=== PATIENT | female | born 1930 | race Caucasian/White ===

== ENCOUNTER → 2017-05-30 | Outpatient (CLI) | payer MEDICARE, BC | LOC: LAB 14:59 | DX: I10 Essential (primary) hypertension (principal); E55.9 Vitamin D deficiency, unspecified; M81.0 Age-related osteoporosis without current pathological fracture ==

== ENCOUNTER → 2018-09-21 | Outpatient (CLI) | payer MEDICARE, BC ==
[2018-09-21 08:57] LABS: EOS # 0.1 (0.04-0.40); EOS % 1.4 % (1.0-5.0); HEMATOCRIT 38.9 % (37.0-47.0); HEMOGLOBIN 12.5 g/dL (12.5-16.0); MEAN CELL VOLUME 99 fl (78-100); MEAN CORPUSCULAR HEMOGLOBIN 32 pg (27-31); MEAN CORPUSCULAR HGB CONC 32 g/dL (33-37); MEAN PLATELET VOLUME 10.3 fl (7.4-10.4); MONO # 0.3 (0.20-0.80); NEU # 2.1 (1.40-6.50); PLATELET COUNT 236 K/mm3 (130-400); RED BLOOD COUNT 3.95 M/mm3 (4.10-5.30); RED CELL DISTRIBUTION WIDTH 12.8 % (11.5-14.5); WHITE BLOOD COUNT 3.5 K/mm3 (4.8-10.8)
[2018-09-21 09:05] LABS: ALBUMIN 4.1 g/dL (3.5-5.0); CALCIUM 9.2 mg/dL (8.4-10.2); POTASSIUM 3.9 mmol/L (3.6-5.0); TOTAL BILIRUBIN 0.7 mg/dL (0.2-1.3); TOTAL PROTEIN 7.3 g/dL (6.3-8.2)
== END ==
LOC: LAB 08:35
PROVIDERS: Physician Assistant
DX: Z00.00 Encounter for general adult medical examination without abnormal findings (principal); K59.09 Other constipation; I10 Essential (primary) hypertension; M81.0 Age-related osteoporosis without current pathological fracture

== ENCOUNTER → 2019-11-29 | Outpatient (CLI) | payer MEDICARE, BC ==
[2019-11-29 08:52] LABS: ALBUMIN 4.1 g/dL (3.4-4.8); POTASSIUM 3.7 mmol/L (3.5-5.1)
[2019-11-29 08:54] LABS: CALCIUM 9.5 mg/dL (8.3-10.5)
[2019-11-29 08:55] LABS: TOTAL PROTEIN 7.2 g/dL (6.2-8.1)
[2019-11-29 08:57] LABS: TOTAL BILIRUBIN 0.6 mg/dL (0.2-1.2)
[2019-11-29 09:10] LABS: EOS # 0.1 (0.04-0.40); EOS % 1.4 % (1.0-5.0); HEMOGLOBIN 12.4 g/dL (12.5-16.0); LYMPH# 1.3 (1.50-4.00); MEAN CELL VOLUME 100 fl (78-100); MEAN CORPUSCULAR HEMOGLOBIN 31 pg (27-31); MEAN CORPUSCULAR HGB CONC 31 g/dL (33-37); MEAN PLATELET VOLUME 10.7 fl (7.4-10.4); MONO # 0.3 (0.20-0.80); NEU # 2.5 (1.40-6.50); PLATELET COUNT 219 K/mm3 (130-400); RED BLOOD COUNT 4.01 M/mm3 (4.10-5.30); RED CELL DISTRIBUTION WIDTH 13.1 % (11.5-14.5); WHITE BLOOD COUNT 4.2 K/mm3 (4.8-10.8)
== END ==
LOC: LAB 08:31
PROVIDERS: Physician Assistant
DX: Z00.00 Encounter for general adult medical examination without abnormal findings (principal); Z13.220 Encounter for screening for lipoid disorders; I10 Essential (primary) hypertension; M81.0 Age-related osteoporosis without current pathological fracture; K59.09 Other constipation

== ENCOUNTER → 2021-03-07 | Outpatient (CLI) | payer MEDICARE, BC ==
[2021-03-07 07:39] LABS: HEMATOCRIT 39.2 % (37.0-47.0); MEAN PLATELET VOLUME 9.9 fl (7.4-10.4); RED BLOOD COUNT 3.85 M/mm3 (4.10-5.30); RED CELL DISTRIBUTION WIDTH 13.1 % (11.5-14.5); WHITE BLOOD COUNT 3.8 K/mm3 (4.8-10.8)
[2021-03-07 07:45] LABS: ALBUMIN 3.9 g/dL (3.4-4.8); POTASSIUM 3.7 mmol/L (3.5-5.1)
[2021-03-07 07:46] LABS: CALCIUM 9.1 mg/dL (8.3-10.5)
[2021-03-07 07:49] LABS: TOTAL BILIRUBIN 0.6 mg/dL (0.2-1.2)
== END ==
LOC: LAB 07:00
PROVIDERS: Physician Assistant
DX: I10 Essential (primary) hypertension (principal)

== ENCOUNTER → 2022-03-18 | Outpatient (CLI) | payer MEDICARE, BC ==
[2022-03-18 08:53] LABS: BASO # 0.02 K/mm3 (0.02-0.10); EOS # 0.03 K/mm3 (0.04-0.40); EOS % 0.7 % (1.0-5.0); HEMATOCRIT 41.1 % (37.0-47.0); HEMOGLOBIN 12.8 g/dL (12.5-16.0); LYMPH# 1.14 K/mm3 (1.50-4.00); MEAN CELL VOLUME 102 fl (78-100); MEAN CORPUSCULAR HEMOGLOBIN 32 pg (27-31); MEAN CORPUSCULAR HGB CONC 31 g/dL (33-37); MEAN PLATELET VOLUME 10.2 fl (7.4-10.4); MONO # 0.35 K/mm3 (0.20-0.80); NEU # 2.67 K/mm3 (1.40-6.50); PLATELET COUNT 252 K/mm3 (130-400); RED BLOOD COUNT 4.02 M/mm3 (4.10-5.30); RED CELL DISTRIBUTION WIDTH 12.7 % (11.5-14.5); WHITE BLOOD COUNT 4.2 K/mm3 (4.8-10.8)
[2022-03-18 08:58] LABS: POTASSIUM 3.7 mmol/L (3.5-5.1); SODIUM 140 mmol/L (136-145)
[2022-03-18 08:59] LABS: ALBUMIN 4.3 g/dL (3.4-4.8)
[2022-03-18 09:00] LABS: CALCIUM 9.4 mg/dL (8.3-10.5)
[2022-03-18 09:01] LABS: GLUCOSE 106 mg/dL (65-105); TOTAL PROTEIN 7.2 g/dL (6.2-8.1)
[2022-03-18 09:02] LABS: CARBON DIOXIDE 25 mmol/L (23-31)
[2022-03-18 09:03] LABS: TOTAL BILIRUBIN 0.5 mg/dL (0.2-1.2)
[2022-03-18 09:06] LABS: AST-SGOT 13 U/L (5-34)
[2022-03-18 09:10] LABS: ALT/SGPT < 6 U/L (0-55)
== END ==
LOC: LAB 08:15
PROVIDERS: Physician Assistant
DX: Z00.00 Encounter for general adult medical examination without abnormal findings (principal); Z13.220 Encounter for screening for lipoid disorders